=== PATIENT | male | born 1990 | race Caucasian/White ===

== ENCOUNTER 2021-06-10 12:46 | Emergency (ER) | payer MEDICAID, SELFPAY ==
[2021-06-10] VITALS (7 sets, daily range): BP systolic 130–161; BP diastolic 83–117; PULSE 62–84; RESP 20; TEMP 37; O2SAT 97–99; BMI 25.0
--- NOTE | 2021-06-10 13:01 | XR_ITS ---
PROCEDURE: XR WRIST RT 2V CLINICAL INDICATION: pain COMPARISON: No exams were available for comparison FINDINGS: No fracture or dislocation. No lytic or blastic change. There is normal mineralization. There is a volar bone plate along the distal aspect of the radius in good position. Old ununited fracture of the ulnar styloid process. Other findings:None. IMPRESSION: No acute findings. Dictated by: Kwan Smith MD 06/10/2021 14:04 Kwan Smith MD in [facility] 06/10/2021 14:04
--- NOTE | 2021-06-10 13:01 | XR_ITS ---
PROCEDURE: XR FOREARM RT 2V CLINICAL INDICATION: pain COMPARISON: No exams were available for comparison FINDINGS: No fracture or dislocation. No lytic or blastic change. There is normal mineralization. There is a bone plate along the palmar and distal aspect of the radius. Old fracture versus ununited ossicle noted at the ulnar styloid process. Other findings:None. IMPRESSION: No acute findings. Dictated by: Kwan Smith MD 06/10/2021 14:03 Kwan Smith MD in [facility] 06/10/2021 14:03
--- NOTE | 2021-06-10 13:41 | [facility].EDGENADL ---
ED Disposition Clinical Impression: Pain Disposition: Home, Self-Care Condition on Discharge: Good Additional Instructions: Take ibuprofen for the next few days, avoid frequent activity with your right rist and hand. Ice for inflammation. Referrals: Provider,Referral, [Primary Care Provider] - - Critical Care Critical Care Time: No Attestation: On 06/10/21, the high probability of a clinically significant, sudden or life threatening deterioration of the following system(s) required my full and direct attention, intervention and personal management. The time I documented below is in addition to time spent performing reported procedures but includes the following listed in this critical care notation. Medical Decision Making - Medical Records Medical records reviewed: Yes: I reviewed the patient's medical records. - Freddie Inquiry Pt receiving controlled substance: No Vital Signs: 06/10/21 12:47 06/10/21 13:30 06/10/21 14:00 Temperature 98.6 F Temperature Source Oral Pulse Rate 78 84 Pulse Rate [Left Radial] 78 Respiratory Rate 20 Blood Pressure 143/99 H 148/103 H Blood Pressure [Right Arm] 151/100 H Blood Pressure Mean Blood Pressure Mean [Right Arm] 117 Blood Pressure Source [Right Arm] Automatic Cuff Blood Pressure Position [Right Arm] Sitting 02 Sat by Pulse Oximetry 97 97 97 Oxygen Delivery Method Room Air 06/10/21 14:30 06/10/21 15:00 06/10/21 15:30 Temperature Temperature Source Pulse Rate 62 Pulse Rate [Left Radial] Respiratory Rate Blood Pressure 130/83 161/117 H 134/92 H Blood Pressure [Right Arm] Blood Pressure Mean 98 131 108 Blood Pressure Mean [Right Arm] Blood Pressure Source [Right Arm] Blood Pressure Position [Right Arm] 02 Sat by Pulse Oximetry 99 Oxygen Delivery Method 06/10/21 16:35 Temperature 98.6 F Temperature Source Pulse Rate 72 Pulse Rate [Left Radial] Respiratory Rate 20 Blood Pressure 139/94 H Blood Pressure [Right Arm] Blood Pressure Mean Blood Pressure Mean [Right Arm] Blood Pressure Source [Right Arm] Blood Pressure Position [Right Arm] 02 Sat by Pulse Oximetry Oxygen Delivery Method Room Air - Lab Data Lab Results 06/10/21 14:05: WBC 9.4, RBC 4.68, Hgb 14.5, Hct 45.0, MCV 96.2 H, MCH 30.9, MCHC 32.2, RDW 13.1, Plt Count 305, MPV 7.8, Neut % (Auto) 58.1, Lymph % (Auto) 34.1, [place] % (Auto) 3.4, Eos % (Auto) 2.5, Baso % (Auto) 1.9, Neut # (Auto) 5.5, Lymph # (Auto) 3.2, [place] # (Auto) 0.3, Eos # (Auto) 0.2, Baso # (Auto) 0.2, ESR 10 06/10/21 14:05: Sodium 137, Potassium 4.4, Chloride 105, Carbon Dioxide 24, Anion Gap 12.4, BUN 13, Creatinine 0.60 L, Estimated Creat Clear 210, Estimated GFR 156, Est GFR ( Amer) 189, Glucose 84, Calcium 9.5, Total Bilirubin 0.4, AST 35, ALT 19, Alkaline Phosphatase 99, C-Reactive Protein 2.3, Total Protein 7.6, Albumin 4.5, Globulin 3.1, Albumin/Globulin Ratio 1.5 Result diagrams: 06/10/21 14:05 06/10/21 14:05 Orders (Tests/Meds): ED MEDICATIONS Discontinued Medications Generic Name Dose Route Start Last Admin Trade Name Freq PRN Reason Stop Dose Admin Hydrocodone Bitart/Acetaminophen 1 tab 06/10/21 13:53 06/10/21 13:59 Hydrocodone/Apap 5/325 Mg Tablet PO 06/10/21 13:54 1 tab ONCE ONE Administration Medical Decision Narrative: Patient is a 31-year-old male presents emerged department chief complaint of right wrist pain. Differential diagnosis includes fracture, hardware migration, infection among others. Given this labs ESR were obtained, x-ray as well as CT. X-ray and CT showed no acute abnormalities of the patient's fixation. ESR was not elevated. Patient was encouraged to the area, rested and follow-up with his orthopedic surgeon. Encouraged to continue taking ibuprofen as well as acetaminophen. General Adult HPI - General Chief complaint: PAIN Stated complaint: Right wrist pain no known accident Time Seen by
--- NOTE | 2021-06-10 14:07 | CT_ITS ---
PROCEDURE: CT WRIST RT WO CON CLINICAL HISTORY: injury COMPARISON: CR XR WRIST RT 2V from 06/10/2021 TECHNIQUE: Axial images obtained with sagittal and coronal reformats. All CT scans at the facility use one or more dose reduction, viz: automated exposure control, ma/kV adjustment per patient size (including targeted exams where dose is matched to indication, i.e. head), or iterative reconstruction technique. FINDINGS: No acute fracture or dislocation. There is a volar bone plate present with good position of the cortical screws and no intra-articular extension. There is an old ulnar styloid process fracture. Considerable artifact is present from the bone plate. No abnormal fluid collections. IMPRESSION: No acute finding the Dictated by: Kwan Smith MD 06/10/2021 15:57 Kwan Smith MD in [facility] 06/10/2021 15:57
[2021-06-10 14:14] LABS: Basophils # 0.2 K/mm3 (0-0.2); Basophils % 1.9 % (0.1-2.0); Eosinophils # 0.2 K/mm3 (0.0-0.4); Eosinophils % 2.5 % (0.1-12.0); Hemoglobin 14.5 g/dL (14.1-18.0); Lymphocytes # 3.2 K/mm3 (0.7-4.5); Lymphocytes % 34.1 % (10-50); Mean Corpuscular HGB Conc 32.2 g/dL (31.8-35.4); Mean Corpuscular Hemoglobin 30.9 pg (27.0-31.2); Mean Corpuscular Volume 96.2 fl (80-94); Mean Platelet Volume 7.8 fl (7.4-10.4); Monocytes # 0.3 K/mm3 (0.1-1.0); Monocytes % 3.4 % (1.7-9.3); Neutrophils # 5.5 K/mm3 (1.8-7.8); Neutrophils % 58.1 % (37.0-80.0); Platelet Count 305 K/mm3 (142-424); Red Blood Count 4.68 M/mm3 (4.60-6.20); Red Cell Distribution Width 13.1 % (11.5-17.5); White Blood Count 9.4 K/mm3 (4.8-10.8)
[2021-06-10 14:26] LABS: Alanine Aminotransferase 19 U/L (12-78); Albumin Level 4.5 g/dl (3.5-5.0); Albumin/Globulin Ratio 1.5 (1.1-1.8); Alkaline Phosphatase 99 U/L (38-126); Anion Gap 12.4 mEq/L (5-15); Aspartate Amino Transferase 35 U/L (17-59); Bilirubin,Total 0.4 mg/dl (0.2-1.3); Blood Urea Nitrogen 13 mg/dl (9-20); Calcium 9.5 mg/dl (8.4-10.2); Carbon Dioxide 24 mmol/L (22.0-30.0); Chloride 105 mmol/L (98-107); Creatinine Clearance Estimated 210 mL/min (50-200); Estimated Glomerular Filt Rate 156 ml/min (>60); GFR (African American) 189 ML/MIN (>60); Globulin 3.1 g/dL (1.3-3.2); Glucose 84 mg/dl (74-100); Potassium 4.4 mmoL/L (3.5-5.1); Sodium 137 mmol/L (136-145); Total Protein,Serum 7.6 g/dl (6.3-8.2)
[2021-06-10 14:32] LABS: C-Reactive Protein 2.3 mg/L (0-4)
[2021-06-10 15:16] LABS: Erythrocyte Sedimentation Rate 10 mm/hr (0-15)
--- NOTE | 2021-06-10 15:57 | PC.NURSE ---
RADIOLOGY JUST CALLED DR HUGHES HAS NOT READ CT YET BUT THEY ARE SENDING IT TO [facility]
== END 2021-06-10 16:40 | disposition home or self-care (01) ==
PROVIDERS: Emergency Provider Emergency Medicine
DX: M25.531 Pain in right wrist (principal); X50.9XXA Other and unspecified overexertion or strenuous movements or postures, initial encounter
CPT/HCPCS: 73090; 73100; 73200; 80053; 85025; 85651; 86140; 99282